=== PATIENT | male | born 1950 ===

== ENCOUNTER → 2023-02-28 06:00 | Outpatient (CLI) | payer OTHER ==
[~2023-02-28] VITALS: Ht 172.7 cm; Wt 79.4 kg
[~2023-02-28 06:00] MED LIST: INTESTINEX680 M1 PO; LEVSIN/SL0.125 MG SL; PEPCID AC20 MG PO; PERCOCET 5-3251 EACH PO
== END | disposition home or self-care (01) ==
LOC: LAB 06:00 → EDSTATUS 03-03 10:00 → SURG 03-03 10:00
PROVIDERS: ATTEND Surgery
DX: I10 Essential (primary) hypertension (principal); Z03.818 Encounter for observation for suspected exposure to other biological agents ruled out; Z20.822 Contact with and (suspected) exposure to COVID-19; D12.0 Benign neoplasm of cecum; D37.4 Neoplasm of uncertain behavior of colon; K92.1 Melena